=== PATIENT | male | born 1960 | race Hispanic/Latino ===

== ENCOUNTER 2017-11-30 17:28 | Emergency (ER) | payer BC ==
[~2017-11-30 17:28] MED LIST: AMLO5TAB2 PO; AMOX1TAB16 PO; ATOR10 PO; BENZ-51 PO; FLUT100P6 MC; FLUT16H NS; GLIP5TAB11 PO; INSLAN SQ; LISI40TA4 PO; METF10004 PO
[2017-11-30] MEDS ORDERED: LIDOCAINE HCL 2% VISCOUS 15 ML UDCUP ONE (18:12)
[2017-11-30] MEDS ORDERED: MAG HYDROX/AL HYDROX/SIMETH ES 30 ML SUSP UDCUP ONE (18:12)
[2017-11-30] MEDS ORDERED: ONDANSETRON HCL 4 MG/2 ML VIAL ONE (18:12)
[2017-11-30 18:25] LABS: BASOPHILS % (AUTO) 0.8 % (0.0-5.0); EOSINOPHILS % (AUTO) 2.6 % (0.0-8.0); HEMATOCRIT 42.7 % (42-54); LYMPHOCYTES % (AUTO) 33.5 % (21.0-51.0); MEAN CORPUSCULAR HEMOGLOBIN 29.6 pg (27.0-33.0); MEAN CORPUSCULAR VOLUME 84.7 fL (79-99); MONOCYTES % (AUTO) 10.6 % (3.0-13.0); NEUTROPHILS % (AUTO) 52.5 % (40.0-77.0); PLATELET COUNT (AUTO) 235 K/uL (130-400); RED BLOOD CELL COUNT(AUTO) 5.05 MIL/uL (4.50-6.20); RED CELL DISTRIBUTION WIDTH 13.4 % (11.0-15.5); WHITE BLOOD COUNT (AUTO) 8.8 K/uL (4.8-10.8)
[2017-11-30 18:35] LABS: CREATININE 0.9 mg/dL (0.5-1.5); POTASSIUM 3.8 mmol/L (3.5-5.1)
[2017-11-30 18:38] LABS: INR 0.99 (0.85-1.15); PARTIAL THROMBOPLASTIN TIME 25.3 SEC (26.3-35.5); PROTHROMBIN TIME 10.4 SEC (9.6-11.6)
[2017-11-30 18:49] LABS: ALBUMIN 3.5 g/dL (3.5-5.0); BILIRUBIN,TOTAL 0.3 mg/dL (0.2-1.0); TOTAL PROTEIN, SERUM 7.2 g/dL (6.0-8.3)
[2017-11-30] MEDS ORDERED: IOPAMIDOL-370 75 ML VIAL IV ONE (19:00)
[2017-11-30] MEDS ORDERED: DICYCLOMINE HCL 10 MG/ML 2ML AMP IM ONE (20:20)
[2017-12-03] MEDS ORDERED: INSU3INS3 SQ (14:45)
[2017-12-03] MEDS ORDERED: CARV6.25 PO (14:46)
== END 2017-11-30 20:38 | disposition home or self-care (01) ==
LOC: EDH 17:28
DX: R10.13 Epigastric pain (principal); R10.11 Right upper quadrant pain; I10 Essential (primary) hypertension; E78.5 Hyperlipidemia, unspecified; E11.9 Type 2 diabetes mellitus without complications; I25.10 Atherosclerotic heart disease of native coronary artery without angina pectoris; Z90.49 Acquired absence of other specified parts of digestive tract
CPT/HCPCS: 36415; 74177; 80053; 82550; 82553; 84484; 85025; 85610; 85730; 93005; 96372; 96374; 99285; J0500; J2405; Q9967

== ENCOUNTER 2017-12-04 07:59 | Day surgery (SDC) | payer BC ==
[~2017-12-04] VITALS: Ht 165.1 cm; Wt 86.2 kg
[~2017-12-04 07:59] MED LIST changes: -AMLO5TAB2 PO; -AMOX1TAB16 PO; -BENZ-51 PO; +CARV6.25 PO; -FLUT100P6 MC; -FLUT16H NS; -INSLAN SQ; +INSU3INS3 SQ; +SODIUM CHLORIDE 0.9% 1000ML 1,000 ML IV ONE
[2017-12-04 08:08] VITALS: BP 137/94
[2017-12-04] MEDS ORDERED: PROPOFOL 10 MG/ML 20ML VIAL IV ONE ×2 (08:37)
[2017-12-04 08:56] VITALS: BP 83/54
== END 2017-12-04 09:35 | disposition home or self-care (01) ==
LOC: DAH 07:59 → ENDO 07:59
PROVIDERS: ATTEND Internal Medicine Gastroenterology
DX: R19.4 Change in bowel habit (principal); E11.9 Type 2 diabetes mellitus without complications; I10 Essential (primary) hypertension; E78.4 Other hyperlipidemia; G47.33 Obstructive sleep apnea (adult) (pediatric); Z79.899 Other long term (current) drug therapy; Z79.84 Long term (current) use of oral hypoglycemic drugs; Z98.890 Other specified postprocedural states
CPT/HCPCS: 45378; 82948 ×2; A4606; J2704 ×2; J7030

== ENCOUNTER 2018-12-28 13:14 | Emergency (ER) | payer BC ==
[~2018-12-28 13:14] MED LIST changes: +METF-446 PO; -METF10004 PO; -SODIUM CHLORIDE 0.9% 1000ML 1,000 ML IV ONE
[2018-12-28 14:16] LABS: BASOPHILS % (AUTO) 1.3 % (0.0-5.0); EOSINOPHILS % (AUTO) 2.6 % (0.0-8.0); HEMATOCRIT 46.6 % (42-54); LYMPHOCYTES % (AUTO) 19.9 % (21.0-51.0); MEAN CORPUSCULAR HEMOGLOBIN 28.8 pg (27.0-33.0); MEAN CORPUSCULAR HGB CONC 33.9 g/dL (32.0-36.0); MEAN CORPUSCULAR VOLUME 84.9 fL (79-99); MONOCYTES % (AUTO) 6.4 % (3.0-13.0); NEUTROPHILS % (AUTO) 69.8 % (40.0-77.0); PLATELET COUNT (AUTO) 251 K/uL (130-400); RED BLOOD CELL COUNT(AUTO) 5.49 MIL/uL (4.50-6.20); RED CELL DISTRIBUTION WIDTH 13.4 % (11.0-15.5); WHITE BLOOD COUNT (AUTO) 9.4 K/uL (4.8-10.8)
[2018-12-28 14:25] LABS: CREATININE 0.9 mg/dL (0.5-1.5); POTASSIUM 4.1 mmol/L (3.5-5.1)
[2018-12-28 14:31] LABS: ALBUMIN 3.4 g/dL (3.5-5.0); BILIRUBIN,TOTAL 0.4 mg/dL (0.2-1.0); TOTAL PROTEIN, SERUM 7.2 g/dL (6.0-8.3)
[2018-12-28] MEDS ORDERED: ACETAMINOPHEN 325 MG TAB ONE (14:58)
[2018-12-28] MEDS ORDERED: PREDNISONE 20 MG TABLET ONE (14:58)
== END 2018-12-28 15:23 | disposition home or self-care (01) ==
LOC: EDH 13:14
DX: J20.9 Acute bronchitis, unspecified (principal); B34.9 Viral infection, unspecified; E11.9 Type 2 diabetes mellitus without complications; E78.5 Hyperlipidemia, unspecified; I10 Essential (primary) hypertension; I25.10 Atherosclerotic heart disease of native coronary artery without angina pectoris; Z90.49 Acquired absence of other specified parts of digestive tract
CPT/HCPCS: 36415; 71046; 80053; 85025; 87804; 87880